=== PATIENT | male | born 1945 | race Caucasian/White ===

== ENCOUNTER 2022-05-16 09:02 | Day surgery (SDC) | payer OTHER, MEDICARE ==
[2022-05-09 13:38] VITALS: BMI 28.0
[2022-05-16] MEDS ORDERED: CYCLOPENTOLATE 2% OPHTH SOLN 2 ML BOTTLE ONE (09:41)
[2022-05-16] MEDS ORDERED: PHENYLEPHRINE 2.5% OPHTH SOLN 15 ML BOTTLE ONE (09:41)
[2022-05-16] MEDS ORDERED: TROPICAMIDE 1% OPHTH SOLN 15 ML BOTTLE ONE (09:41)
[2022-05-16] MEDS ORDERED: LIDOCAINE 1% P/F 10 MG/ML VIAL ONE (09:58)
[2022-05-16] MEDS ORDERED: TETRACAINE 0.5% OPHTH SOLN 2 ML BOTTLE ONE (09:58)
[2022-05-16] MEDS ORDERED: NEO/POLYMYX B SULF/DEXAMETH OPHTHALMIC 5ML BOTTLE ONE (09:58)
[2022-05-16] MEDS ORDERED: BSS (NA/CA/MG/K) BALANCED SALT SOLUTION OPHTH SOLN 15 ML BOTTLE ONE (09:58)
[2022-05-16] MEDS ORDERED: CARBACHOL 0.01% INTRA-OCULAR 1.5 ML VIAL ONE (09:58)
[2022-05-16] MEDS ORDERED: PHENYLEPHRINE 2.5% OPHTH SOLN 15 ML BOTTLE OS ONE ×3 (10:00→10:10)
[2022-05-16] MEDS ORDERED: CYCLOPENTOLATE 2% OPHTH SOLN 2 ML BOTTLE OS ONE ×2 (10:00→10:10)
[2022-05-16] MEDS: CIPROFLOXACIN 0.3% EYE DROPS 5 ML BOTTLE ONE ×2 (10:00→10:05)
[2022-05-16] MEDS ORDERED: TROPICAMIDE 1% OPHTH SOLN 15 ML BOTTLE OS ONE ×2 (10:05→10:10)
[2022-05-16] MEDS ORDERED: CIPROFLOXACIN 0.3% EYE DROPS 5 ML BOTTLE OS ONE (10:10)
[2022-05-16] MEDS ORDERED: MIDAZOLAM HCL 2 MG/2 ML SINGLE DOSE VIAL ONE (10:39)
[2022-05-16 11:27] VITALS: TEMP 97.8
[2022-05-16 11:34] VITALS: BP 147/76; PULSE 64
== END 2022-05-16 12:00 | disposition home or self-care (01) ==
LOC: FASU 09:02
PROVIDERS: ATTEND Ophthalmology
PROC: 08RK3JZ Replacement of Left Lens with Synthetic Substitute, Percutaneous Approach (ICD-10-PCS; principal; 2022-05-16 10:42)
DX: H26.8 Other specified cataract (principal)
CPT/HCPCS: 66984; V2632